=== PATIENT | female | born 1935 | race Caucasian/White ===

== ENCOUNTER 2018-05-14 14:02 | Inpatient (IN) | payer MEDICARE, BC | END 2018-05-21 21:00 | disposition home or self-care (01) | LOC: ER 14:02 → ED HOLD 17:24 → PCU 3S 19:40 | PROC: 0W993ZX Drainage of Right Pleural Cavity, Percutaneous Approach, Diagnostic (ICD-10-PCS; principal; ~2018-05-14) | DX: J91.0 Malignant pleural effusion (principal); J18.9 Pneumonia, unspecified organism; J96.00 Acute respiratory failure, unspecified whether with hypoxia or hypercapnia; C34.90 Malignant neoplasm of unspecified part of unspecified bronchus or lung; J90 Pleural effusion, not elsewhere classified ==

== ENCOUNTER 2018-07-26 13:53 | Emergency (ER) | payer MEDICARE, BC ==
[~2018-07-26] VITALS: Ht 162.6 cm; Wt 72.7 kg
[~2018-07-26 13:53] MED LIST: ALBU8.5H8 INH; AMLO5TAB4 PO; APIX5TAB3 PO; BUDE10.22 INH; CARV-50 PO; COL100C PO; LACT1CAP26 PO; PANT40TA4 PO
--- NOTE | 2018-07-26 14:27 | NUR ---
PT C/O CP WHILE IN TRIAGE, EKG ORDERED AND OBTAINED
[2018-07-26] MEDS ORDERED: ondansetron/PF 4mg/2ml inj IV ONE (14:55)
[2018-07-26] MEDS ORDERED: normal saline 1000ml 1,000 ML IV ONE (14:55)
[2018-07-26 15:32] LABS: ALANINE AMINOTRANSFERASE 23 U/L (12-78); ALBUMIN 2.7 G/DL (3.4-5.0); ALBUMIN/GLOBULIN RATIO 0.6 (1.1-1.5); ALKALINE PHOSPHATASE 73 IU/L (46-116); ANION GAP 9 (8-16); BILIRUBIN,TOTAL 0.3 MG/DL (0.1-1.0); BLOOD UREA NITROGEN 17 MG/DL (7-18); BUN/CREATININE RATIO 13.3 (6.6-38.0); CALCIUM 9.2 MG/DL (8.5-10.1); CHLORIDE 99 MMOL/L (99-107); CREATININE 1.28 MG/DL (0.40-0.90); GLUCOSE 121 MG/DL (70-104); SODIUM 138 MMOL/L (135-145); TOTAL CARBON DIOXIDE 30.2 MMOL/L (24-32); eGFR 40 ML/MIN
[2018-07-26 15:34] LABS: TROPONIN I < 0.04 NG/ML (0.0-0.05)
[2018-07-26 15:38] LABS: ASPARTATE AMINO TRANSFERASE 24 U/L (10-37); POTASSIUM 4.5 MMOL/L (3.5-5.1)
[2018-07-26 15:45] LABS: INR 1.4 INR
[2018-07-26 16:07] LABS: CLARITY,URINE CLOUDY (Clear); COLOR,URINE YELLOW (Yellow); GLUCOSE, URINE NEGATIVE (Neg); KETONES,URINE TRACE mg/dl (Neg); LEUKOCYTE ESTERASE ,URINE NEGATIVE (Neg); NITRITES, URINE NEGATIVE (Neg); OCCULT BLOOD,URINE NEGATIVE (Neg); PROTEIN,URINE TRACE mg/dl (Neg); UROBILINOGEN,URINE 0.2 E.U/dL (0.2-1.0)
[2018-07-26 16:07] LABS: BASOPHILS % (AUTO) 0.6 % (0-1); EOSINOPHILS # (AUTO) 0.1 X10'3 (0-0.9); EOSINOPHILS % (AUTO) 0.7 % (0-6); HEMOGLOBIN 12.5 g/dl (12.0-16.0); LYMPHOCYTES # (AUTO) 1.3 X10'3 (1.1-4.8); LYMPHOCYTES % (AUTO) 14.9 % (21-51); MEAN CORPUSCULAR HEMOGLOBIN 26.9 PG (27.0-31.0); MEAN CORPUSCULAR VOLUME 81.5 FL (78-98); MEAN PLATELET VOLUME 9.8 FL (7.4-10.4); MONOCYTES # (AUTO) 0.8 X10'3 (0-0.9); MONOCYTES % (AUTO) 9.4 % (2-12); NEUTROPHILS # (AUTO) 6.4 X10'3 (1.8-7.7); NEUTROPHILS % (AUTO) 74.4 % (42-75); PLATELET COUNT 447 X10'3 (140-440); RED BLOOD COUNT 4.66 X10'6 (4.20-5.60); RED CELL DISTRIBUTION WIDTH 14.7 % (11.5-14.5); WHITE BLOOD COUNT 8.5 X10'3 (4.5-11.0)
[2018-07-26 16:11] LABS: UA COLLECTION TYPE STRAIGHT CATH
[2018-07-26] MEDS ORDERED: ONDA4TAB6 PO (16:31)
[2018-07-26 16:39] LABS: MUCUS STRANDS MANY /LPF (Neg)
[2018-07-26 16:40] LABS: SQUAMOUS EPITHELIAL CELL,UR MODERATE /LPF (FEW)
[2018-07-26] MEDS ORDERED: DIPH1TAB PO (16:40)
[2018-07-26 16:41] LABS: AMORPHOUS URATES 1+; BACTERIA,URINE FEW /HPF (Neg); RBC,URINE NONE SEEN /HPF (0-2); WBC,URINE NONE SEEN /HPF (0-4)
--- NOTE | 2018-07-26 17:04 | NUR ---
PT GIVEN WATER FOR PO CHALLENGE, TOLERATING WELL.
[2018-07-26] MEDS ORDERED: fluconazole 100mg tablet PO ONE (17:15)
[2018-07-26 17:39] VITALS: BP 130/81
== END 2018-07-26 17:40 | disposition home or self-care (01) ==
LOC: ER 13:54
DX: R11.2 Nausea with vomiting, unspecified (principal); R19.7 Diarrhea, unspecified; R79.1 Abnormal coagulation profile; Z88.6 Allergy status to analgesic agent; Z79.899 Other long term (current) drug therapy
CPT/HCPCS: 36415; 80053; 81001; 84484; 85025; 85610; 93005; 96361; 96374; 99284; J2405; J7030; P9612

== ENCOUNTER 2018-07-29 08:42 | Day surgery (SDC) | payer MEDICARE, BC ==
[~2018-07-29 08:42] MED LIST changes: +DIPH1TAB PO; +ONDA4TAB6 PO
[2018-07-29] MEDS ORDERED: normal saline 1000ml 1,000 ML IV SCH (09:10)
[2018-07-29 09:14] VITALS: BP 114/55
[2018-07-29] MEDS ORDERED: DIGO125T PO (09:47)
[2018-07-29] MEDS ORDERED: TELM80TA9 PO (09:49)
[2018-07-29] MEDS ORDERED: LIDOcaine 1% 30ml preserv. free vial SQ ONE (10:00)
[2018-07-29] MEDS ORDERED: APIX5TAB3 PO (10:24)
[2018-07-29] MEDS ORDERED: ONDA4TAB12 PO (10:24)
[2018-07-29] MEDS ORDERED: BUDE10.22 INH (10:24)
[2018-07-29] MEDS ORDERED: ALBU8.5H8 INH (10:24)
[2018-07-29] MEDS ORDERED: PANT-47 PO (10:24)
[2018-07-29] MEDS ORDERED: CARV-50 PO (10:24)
[2018-07-29] MEDS ORDERED: DOCU100C41 PO (10:24)
[2018-07-29] MEDS ORDERED: LACTC PO (10:24)
[2018-07-29] MEDS ORDERED: heparin sodium, porcine/PF 100unit/ml 5ML syringe ONE (10:43)
[2018-07-29] MEDS ORDERED: fentaNYL/PF 50MCG/1 ML 2ML syringe ONE (10:46)
[2018-07-29] MEDS ORDERED: midazolam 2 mg/2 ml injection ONE (10:46)
[2018-07-29 12:15] VITALS: BP 132/60
[2018-07-29 12:30] VITALS: BP 116/54
[2018-07-29 12:45] VITALS: BP 117/58
[2018-07-29 13:00] VITALS: BP 125/57
[2018-07-29 13:15] VITALS: BP 134/61
== END 2018-07-29 13:45 | disposition home or self-care (01) ==
LOC: SSTAY O 08:42
PROVIDERS: ATTEND Radiology Diagnostic Radiology
DX: C34.91 Malignant neoplasm of unspecified part of right bronchus or lung (principal); J90 Pleural effusion, not elsewhere classified; I48.91 Unspecified atrial fibrillation; J44.9 Chronic obstructive pulmonary disease, unspecified; I10 Essential (primary) hypertension; Z90.710 Acquired absence of both cervix and uterus; Z98.890 Other specified postprocedural states; Z79.899 Other long term (current) drug therapy; Z88.6 Allergy status to analgesic agent; Z91.041 Radiographic dye allergy status
CPT/HCPCS: 32550; 36561; 75989; 76937; 77001; 99152; 99153; C1729; C1788; J1642; J2250; J3010; J7030; A6219; C1894